=== PATIENT | female | born 1985 | race Caucasian/White ===

== ENCOUNTER 2025-03-31 06:55 | Emergency (ER) | payer MEDICAID ==
[~2025-03-31] VITALS: Ht 165.1 cm; Wt 79.4 kg
[2025-03-31 07:13] VITALS: BP 128/75; O2SAT 100
[2025-03-31] MEDS ORDERED: ACETAMINOPHEN 500 MG TABLET ONE (08:01)
[2025-03-31] MEDS: ACETAMINOPHEN 500 MG TABLET PO ONE (08:02)
== END 2025-03-31 08:07 | disposition home or self-care (01) ==
LOC: ER 07:23
DX: S00.93XA Contusion of unspecified part of head, initial encounter (principal); I51.9 Heart disease, unspecified; F42.9 Obsessive-compulsive disorder, unspecified; Z88.1 Allergy status to other antibiotic agents; W22.03XA Walked into furniture, initial encounter; Y93.89 Activity, other specified; Y92.89 Other specified places as the place of occurrence of the external cause; Y99.9 Unspecified external cause status
CPT/HCPCS: A4606; A4663; A9150